=== PATIENT | male | born 1985 | race Caucasian/White ===

== ENCOUNTER 2020-07-09 09:16 | Outpatient (CLI) | payer BC ==
--- NOTE | 2020-07-09 10:01 | RAD ---
Frog-leg lateral view left hip: 07/09/2020 HISTORY: Pain FINDINGS: Mild superior joint space narrowing with mild lateral acetabular osteophyte formation. No a cute fracture or dislocation. IMPRESSION: Mild degenerative change.
--- NOTE | 2020-07-09 10:02 | RAD ---
Frontal radiograph pelvis: 07/09/2020 COMPARISON: None HISTORY: Bilateral hip pain FINDINGS: No widening of the sacroiliac joints or the pubic symphysis. The pelvic ring appears intact . There is mild superior joint space narrowing involving bilateral hips with lateral acetabular osteophyte formation, right greater than left. No acute fracture or dislocation. IMPRESSION: Bilateral hip degenerative change, right greater than left. No acute osseous abnormality.
--- NOTE | 2020-07-09 10:03 | RAD ---
Frontal and lateral view right hip: 07/09/2020 COMPARISON: None HISTORY: Pain FINDINGS: Mild superior joint space narrowing with lateral acetabular osteophyte formation. No acute fracture or dislocation. IMPRESSION: Degenerative joint disease. No acute osseous abnormality.
== END 2020-07-09 09:17 | disposition home or self-care (01) ==
LOC: SCSRAD 09:16
PROVIDERS: ATTEND Internal Medicine Rheumatology
DX: M25.551 Pain in right hip (principal); M25.552 Pain in left hip; M16.0 Bilateral primary osteoarthritis of hip
CPT/HCPCS: 72170